=== PATIENT | female | born 1995 | race African-American/Black ===

== ENCOUNTER 2017-10-25 13:48 | Emergency (ER) | payer SELFPAY ==
[~2017-10-25] VITALS: Ht 144.8 cm; Wt 45.4 kg
[2017-10-25 15:37] LABS: CHLORIDE 109 mEq/L (98-107)
[2017-10-25 15:42] LABS: BASOPHILS % 0.7 % (0.0-2.0); EOSINOPHILS % 0.4 % (0.0-5.0); HEMATOCRIT. 42.2 % (36.0-48.0); HEMOGLOBIN. 13.9 g/dL (12.0-16.0); LYMPHOCYTES % 18.6 % (20.0-50.0); MEAN CORPUSCULAR HEMOGLOBIN 27.7 pg (28.0-32.0); MEAN CORPUSCULAR VOLUME 84.1 fL (81.0-99.0); MEAN PLATELET VOLUME 10.5 fl (7.4-10.4); NEUTROPHILS % 74.3 % (40.0-76.0); PLATELET 226 x1000/uL (130-400); RED BLOOD CELL COUNT 5.02 mill/uL (4.2-5.4); RED CELL DISTRIBUTION WIDTH 13.8 % (11.6-14.6)
[2017-10-25 15:44] LABS: HCG SCREEN NEGATIVE
[2017-10-25 16:07] LABS: CLARITY URINE CLEAR (CLEAR); COLOR URINE YELLOW (YELLOW); KETONES URINE NEGATIVE (NEGATIVE); LEUKOCYTE ESTERASE URINE TRACE (NEGATIVE); NITRITE URINE NEGATIVE (NEGATIVE); OCCULT BLOOD URINE NEGATIVE (NEGATIVE); PH URINE 7.5 (4.5-8.0); PROTEIN URINE NEGATIVE (NEGATIVE); SPECIFIC GRAVITY URINE 1.021 (1.005-1.030); UROBILINOGEN URINE 0.2 E.U./dL (0.2-1.0)
[2017-10-25 16:17] LABS: *AMPHETAMINES SCREEN URINE NEGATIVE (NEGATIVE)
[2017-10-25 16:18] LABS: *BARBITURATES SCREEN URINE NEGATIVE (NEGATIVE); *BENZODIAZEPINES SCREEN URINE NEGATIVE (NEGATIVE); *COCAINE SCREEN URINE NEGATIVE (NEGATIVE); METHADONE URINE SCREEN NEGATIVE (NEGATIVE); OPIATES URINE SCREEN NEGATIVE (NEGATIVE); PHENCYCLIDINE URINE SCREEN NEGATIVE (NEGATIVE)
[2017-10-25 16:29] LABS: CANNABINOID URINE SCREEN PRESUMTIVE POSITIVE (NEGATIVE)
[2017-10-25] MEDS ORDERED: IBUPROFEN 800MG TABLET PO ONE (17:30)
[2017-10-25] MEDS ORDERED: AZITHROMYCIN 500 MG TABLET PO SCH (17:30)
[2017-10-25] MEDS ORDERED: CEFTRIAXONE SODIUM 250 MG/VIAL IM ONE (17:30)
[2017-10-25] MEDS ORDERED: LIDOCAINE HCL/PF 1% 10 MG/ML 5ML VIAL IJ SCH (18:13)
[2017-10-25] MEDS ORDERED: LIDOCAINE HCL 1% 20ML VIAL (Pyxis) INJ INFIL ONE (18:15)
[2017-10-25] MEDS ORDERED: ONDANSETRON 4MG ODT PO ONE (18:30)
[2017-10-25 19:00] VITALS: BP 101/62
== END 2017-10-25 19:23 | disposition home or self-care (01) ==
LOC: ER 13:52
DX: N39.0 Urinary tract infection, site not specified (principal); F17.200 Nicotine dependence, unspecified, uncomplicated; Z79.899 Other long term (current) drug therapy
CPT/HCPCS: 36415; 76830; 76856; 80053; 80305; 81003; 83690; 84703; 85025; 87086; 87491; 87591; 96372; 99285; J0696; J3490; Q0162; Z7610

== ENCOUNTER 2018-07-08 16:19 | Emergency (ER) | payer SELFPAY ==
[~2018-07-08] VITALS: Ht 144.8 cm; Wt 45.0 kg
[2018-07-08] MEDS ORDERED: AZITHROMYCIN 500 MG TABLET PO ONE (18:30)
[2018-07-08] MEDS ORDERED: CEFTRIAXONE SODIUM 250 MG/VIAL IM ONE (18:30)
[2018-07-08] MEDS ORDERED: LIDOCAINE HCL/PF 1% 10 MG/ML 5ML VIAL IJ ONE (18:30)
[2018-07-08 19:00] LABS: CLARITY URINE CLOUDY (CLEAR); COLOR URINE YELLOW (YELLOW); KETONES URINE TRACE (NEGATIVE); LEUKOCYTE ESTERASE URINE TRACE (NEGATIVE); NITRITE URINE POSITIVE (NEGATIVE); OCCULT BLOOD URINE NEGATIVE (NEGATIVE); PH URINE 6.5 (4.5-8.0); PROTEIN URINE NEGATIVE (NEGATIVE); SPECIFIC GRAVITY URINE 1.023 (1.005-1.030)
[2018-07-08 19:07] VITALS: BP 110/45
[2018-07-11 08:21] LABS: CHLAMYDIA TRACHOMATIS NAA Negative (Negative); NEISSERIA GONORRHOEAE NAA Negative (Negative)
== END 2018-07-08 19:07 | disposition home or self-care (01) ==
LOC: ER 16:19
DX: Z20.2 Contact with and (suspected) exposure to infections with a predominantly sexual mode of transmission (principal); Z90.89 Acquired absence of other organs
CPT/HCPCS: 81003; 87210; 87491; 87591; 96372; 99283; J0696; J3490

== ENCOUNTER 2019-03-14 09:41 | Emergency (ER) | payer SELFPAY ==
[~2019-03-14] VITALS: Ht 144.8 cm; Wt 44.5 kg
[2019-03-14] MEDS ORDERED: CEFTRIAXONE SODIUM 250 MG/VIAL IM ONE (10:45)
[2019-03-14] MEDS ORDERED: FLUCONAZOLE 50MG TABLET PO ONE (10:45)
[2019-03-14] MEDS ORDERED: AZITHROMYCIN 500 MG TABLET PO ONE (10:45)
[2019-03-14 11:11] LABS: CLARITY URINE CLEAR (CLEAR); COLOR URINE YELLOW (YELLOW); KETONES URINE NEGATIVE (NEGATIVE); LEUKOCYTE ESTERASE URINE 2+ (NEGATIVE); NITRITE URINE NEGATIVE (NEGATIVE); OCCULT BLOOD URINE NEGATIVE (NEGATIVE); PH URINE 6.5 (4.5-8.0); PROTEIN URINE NEGATIVE (NEGATIVE); SPECIFIC GRAVITY URINE 1.013 (1.005-1.030); UROBILINOGEN URINE 0.2 E.U./dL (0.2-1.0)
[2019-03-14] MEDS ORDERED: LIDOCAINE HCL 1% 20ML VIAL (Pyxis) INJ INFIL ONE (11:30)
[2019-03-14 11:56] LABS: BASOPHILS % 0.8 % (0.0-2.0); EOSINOPHILS % 0.8 % (0.0-5.0); HEMATOCRIT. 41.5 % (36.0-48.0); HEMOGLOBIN. 13.7 g/dL (12.0-16.0); LYMPHOCYTES % 24.3 % (20.0-50.0); MEAN CORPUSCULAR HEMOGLOBIN 28.6 pg (28.0-32.0); MEAN CORPUSCULAR VOLUME 86.5 fL (81.0-99.0); MEAN PLATELET VOLUME 10.4 fl (7.4-10.4); MONOCYTES % 7.9 % (2.0-8.0); NEUTROPHILS % 66.2 % (40.0-76.0); PLATELET 186 x1000/uL (130-400); RED CELL DISTRIBUTION WIDTH 13.1 % (11.6-14.6)
[2019-03-14 11:58] LABS: CHLORIDE 110 mEq/L (98-107)
[2019-03-14 12:12] LABS: B-HCG QUANTITATIVE < 1 mIU/mL (<3)
[2019-03-14 13:37] VITALS: BP 102/52
== END 2019-03-14 13:40 | disposition home or self-care (01) ==
LOC: ER 09:41
DX: N94.10 Unspecified dyspareunia (principal); N93.8 Other specified abnormal uterine and vaginal bleeding; N39.0 Urinary tract infection, site not specified; N76.0 Acute vaginitis; D64.9 Anemia, unspecified; Z87.440 Personal history of urinary (tract) infections
CPT/HCPCS: 36415; 76830; 76856; 80053; 81003; 81025; 84702; 85025; 87210; 87491; 87591; 99284; J0696; J3490